=== PATIENT | female | born 2005 | race Caucasian/White ===

== ENCOUNTER 2023-08-23 14:52 | Emergency (ER) | payer SELFPAY ==
[~2023-08-23] VITALS: Ht 160 cm; Wt 55.0 kg
[2023-08-23 15:10] VITALS: O2SAT 99
[2023-08-23] MEDS: KETOROLAC 15MG/ML VIAL IM ONE (16:57)
[2023-08-23] MEDS: METOCLOPRAMIDE 10MG/10 ML UDC PO ONE (16:58)
[2023-08-23 17:54] VITALS: BP 116/74; PULSE 80; RESP 18; TEMP 98
== END 2023-08-23 17:55 | disposition home or self-care (01) ==
LOC: ER 15:19
DX: R51.9 Headache, unspecified (principal); R11.2 Nausea with vomiting, unspecified
CPT/HCPCS: 81025; 96372; 99283; J8597; J1885; Z7610